=== PATIENT | female | born 1995 ===

== ENCOUNTER 2016-03-30 16:50 | Emergency (ER) | payer OTHER ==
[2016-03-30 18:04] VITALS: BP 115/81
--- NOTE | 2016-03-30 18:58 | UC ---
Head Injury HPI - HPI Summary HPI Summary: LAST NIGHT HIT SIDE OF HEAD AGAINST WOODEN SHELF. NO LOC. NO NECK PAIN. NO NAUSEA, NO VOMITING. TODAY HAS MILD HEADACHE AND SMALL CUT TO LEFT EAR THAT SEEMS TO BE GETTING MORE RED AND SWOLLEN. - History Of Current Complaint Chief Complaint: UCHeadInjury Stated Complaint: HEAD INJURY Time Seen by Provider: 03/30/16 18:03 Hx Obtained From: Patient Hx Last Menstrual Period: 03/23/16 Onset/Duration: Sudden Onset, Lasting Days, Still Present Pain Intensity: 0 Pain Scale Used: 0-10 Numeric Aggravating Factor(s): Nothing Alleviating Factor(s): Nothing Associated Signs And Symptoms: Positive: Negative. Negative: LOC (Time In Secs. /Mins/Hrs), LOC Duration Unknown, Confusion, Memory Loss, Seizure, Epistaxis, Dental Malocclusion, Neck Pain, Nausea, Vomiting - Risk Factors SDH Risk Factor: Negative - Allergies/Home Medications Allergies/Adverse Reactions: Allergies Allergy/AdvReac Type Severity Reaction Status Date / Time No Known Allergies Allergy Verified 03/30/16 18:04 Home Medications: Home Medications Norethindrone Acet & Eth Estra [Microgestin 03/22] 1 tab PO DAILY 03/30/16 [ History Confirmed 03/30/16] PMH/Surg Hx/FS Hx/Imm Hx Previously Healthy: Yes Endocrine History Of: Denies: Diabetes, Thyroid Disease Cardiovascular History Of: 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 Denies: Hypertension Respiratory History Of: Denies: COPD, Asthma GI/ History Of: Denies: Ulcer - Surgical History Surgical History: None - Family History Known Family History: Negative: Seizure Disorder, Blood Disorder - Social History Occupation: Student Lives: With Family Alcohol Use: Occasionally Substance Use Type: None Smoking Status (MU): Never Smoked Tobacco Review of Systems Constitutional: Negative Skin: Other - SUPERFICIAL LACERATION LEFT EAR Eyes: Negative ENT: Negative Respiratory: Negative Cardiovascular: Negative Gastrointestinal: Negative Genitourinary: Negative Motor: Negative Neurovascular: Negative Musculoskeletal: Negative Neurological: Negative Psychological: Negative All Other Systems Reviewed And Are Negative: Yes Physical Exam Triage Information Reviewed: Yes Appearance: Well-Appearing, No Pain Distress, Well-Nourished Vital Signs: Initial Vital Signs Temp 97.7 F 03/30/16 17:59 Pulse 60 03/30/16 17:59 Resp 12 03/30/16 17:59 BP 115/81 03/30/16 17:59 Pulse Ox 100 03/30/16 17:59 Vital Signs Reviewed: Yes Eye Exam: Normal Eyes: Positive: Conjunctiva Clear ENT Exam: Normal ENT: Positive: Normal ENT inspection, Hearing grossly normal, Pharynx normal, TMs normal Dental Exam: Normal Neck exam: Normal Neck: Positive: Supple, Nontender Respiratory Exam: Normal Respiratory: Positive: Chest non-tender, Lungs clear, Normal breath sounds, No respiratory distress, No accessory muscle use Cardiovascular Exam: Normal Cardiovascular: Positive: RRR, No Murmur, Pulses Normal Abdominal Exam: Normal Abdomen Description: Positive: Nontender, No Organomegaly Musculoskeletal Exam: Normal Musculoskeletal: Positive: Strength Intact, ROM Intact Neurological Exam: Normal Neurological: Positive: Alert, Muscle Tone Normal, Other: - CN 2-12 INTACT Psychological Exam: Normal Psychological: Positive: Normal Response To Family Skin: Positive: Other - 1CM X 1MM X 1MM LACERATION TO HELIX OF LEFT EAR Head Injury Course/Dx - Differential Dx/Diagnosis Differential Diagnosis/HQI/PQRI: Concussion Without LOC Provider Diagnoses: LEFT EAR LACERATION WITHOUT CLOSURE. CONCUSSION WITHOUT LOC Discharge - Discharge Plan Condition: Stable Disposition: HOME Prescriptions: Cephalexin CAP* [Keflex CAP*] 500 mg PO TID #30 cap Patient Education Materials: Concussion (ED), Post Concussion Syndrome (ED), Laceration Without Closure (ED) Referrals: [facility] [place] PHYSICIAN REFERRAL [Outside]
== END 2016-03-30 18:40 | disposition home or self-care (01) ==
LOC: UCEAST 16:50
DX: S01.312A Laceration without foreign body of left ear, initial encounter (principal); S06.0X0A Concussion without loss of consciousness, initial encounter; W22.8XXA Striking against or struck by other objects, initial encounter; Y93.9 Activity, unspecified; Y92.9 Unspecified place or not applicable
CPT/HCPCS: 99202; G0463

== ENCOUNTER 2016-05-18 17:45 | Emergency (ER) | payer OTHER ==
--- NOTE | 2016-05-18 18:13 | UC ---
Throat Pain/Nasal [place] HPI - HPI Summary HPI Summary: bad sinus pain for 3 days no fever has been taking otc pain meds, no fever. - History of Current Complaint Chief Complaint: UCRespiratory Stated Complaint: SINUS SYMPTOMS Hx Obtained From: Patient Hx Last Menstrual Period: 3 WEEKS AGO ?: No Onset/Duration: Sudden Onset, Lasting Days - 3, Still Present Severity: Moderate Pain Intensity: 7 Pain Scale Used: 0-10 Numeric Cough: None Associated Signs & Symptoms: Positive: Sinus Discomfort - Allergies/Home Medications Allergies/Adverse Reactions: Allergies Allergy/AdvReac Type Severity Reaction Status Date / Time No Known Allergies Allergy Verified 05/18/16 17:59 PMH/Surg Hx/FS Hx/Imm Hx Previously Healthy: No Endocrine History Of: Denies: Diabetes, Thyroid Disease Cardiovascular History Of: 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 Denies: Hypertension Respiratory History Of: Denies: COPD, Asthma GI/ History Of: Denies: Ulcer - Surgical History Surgical History: None - Family History Known Family History: Negative: Seizure Disorder, Blood Disorder - Social History Occupation: Student Lives: With Family Alcohol Use: Occasionally Substance Use Type: None Smoking Status (MU): Never Smoked Tobacco Review of Systems Constitutional: Negative Skin: Negative Eyes: Negative ENT: Nasal Discharge Respiratory: Negative Cardiovascular: Negative Gastrointestinal: Negative Genitourinary: Negative Motor: Negative Neurovascular: Negative Musculoskeletal: Negative Neurological: Headache - frontal sinus Psychological: Negative All Other Systems Reviewed And Are Negative: Yes Physical Exam Triage Information Reviewed: Yes Appearance: Well-Appearing, No Pain Distress, Well-Nourished Vital Signs: Initial Vital Signs Temp 97.4 F 05/18/16 18:00 Pulse 86 05/18/16 18:00 Resp 16 05/18/16 18:00 BP 117/71 05/18/16 18:00 Pulse Ox 99 05/18/16 18:00 Eye Exam: Normal Eyes: Positive: Conjunctiva Clear ENT Exam: Normal ENT: Positive: Normal ENT inspection, Hearing grossly normal, Pharynx normal, TMs normal. Negative: Nasal congestion, Nasal drainage, Tonsillar swelling, Tonsillar exudate, Trismus, Muffled/hoarse voice Dental Exam: Normal Neck exam: Normal Neck: Positive: Supple, Nontender, No Lymphadenopathy Respiratory Exam: Normal Respiratory: Positive: Chest non-tender, Lungs clear, Normal breath sounds, No respiratory distress, No accessory muscle use Cardiovascular Exam: Normal Cardiovascular: Positive: RRR, No Murmur, Pulses Normal, Brisk Capillary Refill Musculoskeletal Exam: Normal Musculoskeletal: Positive: Strength Intact, ROM Intact, No Edema Neurological Exam: Normal Neurological: Positive: Alert, Muscle Tone Normal Psychological Exam: Normal Skin Exam: Normal Throat Pain/Nasal Course/Dx - Course Assessment/Plan: flonase, mucinex d, augmentin in 7-8 days shouldsx worsens or feverish - Differential Dx/Diagnosis Differential Diagnosis/HQI/PQRI: Otitis Media, Peritonsillar Abscess, Pharyngitis, Sinusitis, URI Provider Diagnoses: Rhinosinusitis Discharge - Discharge Plan Condition: Stable Disposition: HOME Prescriptions: Amoxicillin/Clavulanate TAB* [Augmentin TAB 875*] 875 mg PO BID #20 tab Patient Education Materials: Decongestant/Expectorant (By mouth), Rhinosinusitis (ED), How to Use Nasal [place] (ED) Referrals: IVANNA Zapien [Medical Doctor] - 1 Week Additional Instructions: I believe you are going to get better with out antibiotics. The flonase nasal sparay and the Mucinex D will do a wonderful job with opening your nasal passages and clearing up your sinuses--If you get a fever or do not get better in 7-8 days please start the antibiotic
== END 2016-05-18 18:20 | disposition home or self-care (01) ==
LOC: UCEAST 17:45
DX: J32.9 Chronic sinusitis, unspecified (principal)
CPT/HCPCS: 99212; G0463

== ENCOUNTER 2016-11-05 20:00 | Emergency (ER) | payer OTHER ==
[2016-11-05 20:30] VITALS: BP 111/66
--- NOTE | 2016-11-05 21:28 | UC ---
Throat Pain/Nasal [place] HPI - HPI Summary HPI Summary: [address], PAIN WITH SWALLOWING, CONGESTION. HAD SUBJECTIVE FEVER AND CHILLS. NO AIRWAY OBSTRUCTION OR DYSPHAGIA. - History of Current Complaint Chief Complaint: UCGeneralIllness Stated Complaint: THROAT PAIN Time Seen by Provider: 11/05/16 20:55 Hx Obtained From: Patient Hx Last Menstrual Period: 11/04/16 Onset/Duration: Gradual Onset, Lasting Days, Still Present Severity: Moderate Pain Intensity: 8 Pain Scale Used: 0-10 Numeric Cough: None Associated Signs & Symptoms: Positive: Fever - Allergies/Home Medications Allergies/Adverse Reactions: Allergies Allergy/AdvReac Type Severity Reaction Status Date / Time No Known Allergies Allergy Verified 11/05/16 20:30 PMH/Surg Hx/FS Hx/Imm Hx Other Cardiovascular History: LONG QT SYNDROME - Surgical History Surgical History: None - Family History Known Family History: Negative: Seizure Disorder, Blood Disorder - Social History Alcohol Use: Occasionally Substance Use Type: None Smoking Status (MU): Never Smoked Tobacco Review of Systems Constitutional: Fever, Chills ENT: Sore Throat Respiratory: Negative Cardiovascular: Negative Gastrointestinal: Negative Genitourinary: Negative All Other Systems Reviewed And Are Negative: Yes Physical Exam Triage Information Reviewed: Yes Appearance: Well-Appearing, No Pain Distress, Well-Nourished Vital Signs: Initial Vital Signs Temp 98.4 F 11/05/16 20:25 Pulse 79 11/05/16 20:25 Resp 16 11/05/16 20:25 BP 111/66 11/05/16 20:25 Pulse Ox 99 11/05/16 20:25 Vital Signs Reviewed: Yes Eyes: Positive: Conjunctiva Clear ENT: Positive: Hearing grossly normal, Pharynx normal, TMs normal Neck: Positive: Supple, Tenderness @ - SPFL CERVICAL LAD, Enlarged Nodes @ - SPFL CERVICAL LAD Respiratory Exam: Normal Cardiovascular Exam: Normal Abdomen Description: Positive: Soft Musculoskeletal: Positive: No Edema Neurological: Positive: Alert Psychological: Positive: Age Appropriate Behavior Skin: Negative: rashes Diagnostics - Laboratory Diagnostic Studies Completed/Ordered: RAPID STREP NEGATIVE Throat Pain/Nasal Course/Dx - Differential Dx/Diagnosis Provider Diagnoses: ACUTE PHARYNGITIS - LIKELY VIRAL Discharge - Discharge Plan Condition: Stable Disposition: HOME Patient Education Materials: Pharyngitis (ED) Referrals: [facility] [Primary Care Provider] - If Needed Additional Instructions: RAPID STREP NEGATIVE. COOL LIQUIDS, IBUPROFEN NEEDED. OTC CHLORASEPTIC OR CEPACOL LOZENGES FOR SORE THROAT NEEDED
== END 2016-11-05 21:40 | disposition home or self-care (01) ==
LOC: UCEAST 20:00
DX: J02.9 Acute pharyngitis, unspecified (principal); R50.9 Fever, unspecified; I45.81 Long QT syndrome
CPT/HCPCS: 87651; 99211; G0463

== ENCOUNTER 2017-01-17 12:33 | Emergency (ER) | payer OTHER ==
[2017-01-17 12:49] VITALS: BP 114/72
--- NOTE | 2017-01-17 13:01 | UC ---
Complaint Female HPI - HPI Summary HPI Summary: 21 yo female was seen earlier this week at [facility] Had dysuria/urgency/frequency given macrobid better but not completely better mild LBP mild sense of urgency no abd pain no bag d/c or itch I called [facility] and was informed a U culture was not done she is travelling to [place] - History Of Current Complaint Chief Complaint: UCGU Stated Complaint: BURNING URINATION WITH LOWER BACK PAIN Hx Obtained From: Patient Hx Last Menstrual Period: about 3 weeks ago, unsure of date Onset/Duration: Gradual Onset, Lasting Days, Other - almost resolved Timing: Intermittent Severity Initially: Mild Severity Currently: None Pain Intensity: 3 - LBP Pain Scale Used: 0-10 Numeric Character: Dull Aggravating Factor(s): Urination Associated Signs And Symptoms: Positive: Back Pain. Negative: Fever, Vaginal Bleeding/Discharge, Vaginal Discharge, Nausea, Vomiting(# Of Episodes =), Genital Swelling, Genital Blisters, Retained Foregin Body (Specify) - Allergies/Home Medications Allergies/Adverse Reactions: Allergies Allergy/AdvReac Type Severity Reaction Status Date / Time No Known Allergies Allergy Verified 01/17/17 12:49 Home Medications: Home Medications Nitrofurantoin Monohyd Macro [Macrobid] 100 mg PO BID 01/17/17 [History Confirmed 01/17/17] PMH/Surg Hx/FS Hx/Imm Hx Previously Healthy: Yes - Surgical History Surgical History: None - Family History Known Family History: Negative: Cardiac Disease, Hypertension, Seizure Disorder, Blood Disorder - Social History Alcohol Use: Rare Substance Use Type: None Smoking Status (MU): Never Smoked Tobacco - Immunization History Most Recent Influenza Vaccination: none Review of Systems Constitutional: Negative Skin: Negative Eyes: Negative ENT: Negative Respiratory: Negative Cardiovascular: Negative Gastrointestinal: Negative Genitourinary: Urgency Motor: Negative Neurovascular: Negative Musculoskeletal: Myalgia - lbp Neurological: Negative Psychological: Negative Is Patient Immunocompromised?: No All Other Systems Reviewed And Are Negative: Yes Physical Exam Triage Information Reviewed: Yes Appearance: Well-Appearing, No Pain Distress, Well-Nourished Vital Signs: Initial Vital Signs Temp 98.4 F 01/17/17 12:44 Pulse 61 01/17/17 12:44 Resp 16 01/17/17 12:44 BP 114/72 01/17/17 12:44 Pulse Ox 100 01/17/17 12:44 Vital Signs Reviewed: Yes Eyes: Positive: Conjunctiva Clear ENT: Positive: Normal ENT inspection. Negative: Nasal congestion, Nasal drainage, Trismus, Muffled voice, Hoarse voice, Dental tenderness, Sinus tenderness Neck: Positive: Supple, Nontender Respiratory: Positive: Lungs clear, Normal breath sounds, No respiratory distress Cardiovascular: Positive: No Murmur, Pulses Normal Abdomen Description: Positive: Nontender, No Organomegaly, Soft. Negative: CVA Tenderness (R), CVA Tenderness (L) Bowel Sounds: Positive: Present Neurological: Positive: Alert Psychological Exam: Normal Skin Exam: Normal Complaint Female Dx - Course Course Of Treatment: Udip (-). I explained to pt that the (-) urine dip may be due to a treated UTi or that she may have another issue mimicking a UTI. I suggested a pelvic exam. She decline because she in 1 1/2 hrs late for [place] trip. States she will get rechecked late next week , when she returns, if she was not better. She states she just wanted to make sure she did not have a kidney infection. - Differential Dx/Diagnosis Provider Diagnoses: dysuria-uncertain cause Discharge - Discharge Plan Condition: Stable Disposition: HOME Patient Education Materials: Dysuria (ED) Referrals: [facility] [Primary Care Provider] - Additional Instructions: continue macrobid recheck when you return from [place] if not completely better
== END 2017-01-17 13:40 | disposition home or self-care (01) ==
LOC: UCEAST 12:33
DX: R30.0 Dysuria (principal)
CPT/HCPCS: 81003; 99211; G0463